=== PATIENT | female | born 2000 ===

== ENCOUNTER 2025-08-16 22:15 | Inpatient (IN) | payer MEDICAID ==
[2025-08-17] MEDS ORDERED: Nalbuphine 10 MG/1 ML Vial IVPUSH PRN (01:19)
[2025-08-17] MEDS ORDERED: Ondansetron 4 MG/2 ML SDV IVPUSH PRN (01:19)
[2025-08-17] MEDS ORDERED: Oxytocin/0.9 % Sodium Chloride 30 UNIT/500 ML BAG IV SCH (01:30)
[2025-08-17 01:47] LABS: BASOPHILS PERCENT AUTO 0.3 % (0.0-1.0); EOSINOPHILS PERCENT AUTO 0.2 % (0.0-6.0); IMMATURE GRAN PERCENT AUTO 0.6 % (0.0-0.4); LYMPHOCYTES ABSOLUTE AUTO 1.9 K/mm3 (1.0-4.8); LYMPHOCYTES PERCENT AUTO 15.0 % (24.0-44.0); MEAN PLATELET VOLUME 11.4 fl (9.4-12.3); MONOCYTES ABSOLUTE AUTO 0.9 K/mm3 (0.0-0.8); MONOCYTES PERCENT AUTO 7.3 % (0.0-8.0); NEUTROPHILS ABSOLUTE AUTO 9.7 K/mm3 (1.8-7.7); NEUTROPHILS PERCENT AUTO 76.6 % (41.0-71.0); NRBC PERCENT 0.0 % (0.0-0.2); PLATELET COUNT,PLT 204 K/mm3 (150-400); RED BLOOD CELL COUNT 3.66 M/mm3 (4.10-5.30); WHITE BLOOD CELL COUNT,WBC 12.67 K/mm3 (3.9-11.3)
[2025-08-17 01:48] LABS: BASOPHILS ABSOLUTE AUTO 0.0 K/mm3 (0.0-0.2); EOSINOPHILS ABSOLUTE AUTO 0.0 K/mm3 (0.0-0.4); IMMATURE GRAN ABSOLUTE AUTO 0.07 K/mm3 (0.00-0.05); NRBC ABSOLUTE 0.00 (0.00-0.02)
[2025-08-17] MEDS: Lactated Ringers 1,000 ML IV SCH (04:05)
[2025-08-17] MEDS ORDERED: diphenhydrAMINE 50 MG/ML SDV IVPUSH PRN (09:48)
[2025-08-17] MEDS ORDERED: ePHEDrine 50 MG/ML SDV IVPUSH PRN (09:48)
[2025-08-17] MEDS: Bupivacaine/fentaNYL/NS 100 ML Bag EPIDUR PRN (09:59)
[2025-08-17] MEDS: fentaNYL 100 MCG/2 ML SDV EPIDUR PRN (09:59)
[2025-08-17] MEDS: Oxytocin/0.9 % Sodium Chloride 30 UNIT/500 ML BAG IV SCH (11:29)
[2025-08-18] MEDS ORDERED: Magnesium Hydroxide 400 MG/5 ML Susp 30 ML Cup PO PRN (01:56)
[2025-08-18] MEDS ORDERED: Oxytocin/0.9 % Sodium Chloride 30 UNIT/500 ML BAG IV SCH (01:56)
[2025-08-18] MEDS: Benzocaine/Menthol 20%-0.5% Spray 78 GM Cannister TOP PRN (02:04)
[2025-08-18] MEDS: Witch Hazel Medicated Pads 40/Jar TOP PRN (02:04)
[2025-08-18] MEDS: Prenatal Multivitamin with Calcium/Folic Acid/Iron Tab PO SCH (08:36)
== END 2025-08-19 13:10 | disposition home or self-care (01) | DRG 807 ==
LOC: JD.OBCHECK 22:15 → JD.OB 22:17 → JD.OBCHECK 22:27 → JD.OB 08-17 04:11 → OBSVTOIN 08-17 22:28
PROVIDERS: ADMIT Obstetrics & Gynecology; ATTEND Obstetrics & Gynecology
PROC: 10E0XZZ Delivery of Products of Conception, External Approach (ICD-10-PCS; principal; 2025-08-17)
PROC: 3E0S3BZ Introduction of Anesthetic Agent into Epidural Space, Percutaneous Approach (ICD-10-PCS; principal; 2025-08-17)
PROC: 10907ZC Drainage of Amniotic Fluid, Therapeutic from Products of Conception, Via Natural or Artificial Opening (ICD-10-PCS; principal; 2025-08-17)
PROC: 0KQM0ZZ Repair Perineum Muscle, Open Approach (ICD-10-PCS; principal; 2025-08-17)
DX: O48.0 Post-term pregnancy (principal); Z3A.40 40 weeks gestation of pregnancy; Z37.0 Single live birth; O70.1 Second degree perineal laceration during delivery; O75.5 Delayed delivery after artificial rupture of membranes; Z90.89 Acquired absence of other organs
CPT/HCPCS: 01967; 36415; 51702; 59025; 59409; 85025; 86592; 86850; 86900; 86901; A9270-GY; J0665; J3010; J3490; J7120; J7999